=== PATIENT | male | born 1945 | race Caucasian/White ===

== ENCOUNTER 2020-02-07 17:36 | Inpatient (IN) | payer MEDICARE ==
[~2020-02-07] VITALS: Ht 180.3 cm; Wt 81.2 kg
[~2020-02-07 17:36] MED LIST: TERA2CAP3 PO
--- NOTE | 2020-02-07 17:57 | NUR ---
PT BEING TREATED FOR PROSTATE CANCER. PT STATES HE IS HAVING STOMACH AND BOWEL PROBLEMS. UNABLE TO EAT OR HAVE REGULAR BM. WAS HAVING SEVERE DIARRHEA, TOOK IMMODIUM, NOW ONLY ABLE TO HAVE SMALL BM IN AMS. PCP WANTS A CT AND SMALL BOWEL FOLLOW UP. DENIES PAIN, N/V AT THIS TIME. VSS
[2020-02-07] MEDS ORDERED: SODIUM CHLORIDE FLUSH 10ML SYR IVF ONE (19:00)
--- NOTE | 2020-02-07 19:00 | NUR ---
Late entry: Report received from MICHELLE Kaur. This RN to assume care. Patient to go to CT.
[2020-02-07 19:22] LABS: ALANINE AMINOTRANSFERASE 45 U/L (12-78); ALBUMIN 2.8 g/dL (3.4-5.0); ANION GAP 5 mmol/L (5-15); CALCIUM 8.4 mg/dL (8.5-10.1); CHLORIDE 107 mmol/L (98-107); CREATININE 0.82 mg/dL (0.7-1.3)
[2020-02-07 19:24] LABS: MD YES
[2020-02-07 19:25] LABS: ALKALINE PHOSPHATASE 221 U/L (45-117); BILIRUBIN,TOTAL 0.8 mg/dL (0.2-1.0); TOTAL PROTEIN 6.2 g/dL (6.4-8.2)
[2020-02-07 19:46] LABS: MEAN CORPUSCULAR HEMOGLOBIN 35.3 pg (27.5-34.5); PLATELET COUNT 239 x10^3/uL (130-400); RED BLOOD COUNT 3.36 x10^6/uL (4.38-5.82); RED CELL DISTRIBUTION WIDTH 15.7 % (9.4-14.8)
[2020-02-07 19:48] LABS: BASOS#(MANUAL) 0.05 x10^3/uL (0-0.1); BASOS% (MANUAL) 1 % (0-1); EOS#(MANUAL) 0.05 x10^3/uL (0.0-0.4); EOS% (MANUAL) 1 % (1-7); LYMPH#(MANUAL) 0.51 x10^3/uL (1-3.4); LYMPHS% (MANUAL) 11 % (22-44); MONOS#(MANUAL) 0.32 x10^3/uL (0.3-2.7); MONOS% (MANUAL) 7 % (2-9); SEG#(MANUAL) 3.68 x10^3/uL (1.8-6.8); SEGS% (MANUAL) 80 % (42-75)
[2020-02-07 19:49] LABS: <PLATELET ESTIMATE> ADEQUATE; <PLT MORPHOLOGY> NORMAL PLT MORPH; <RBC MORPHOLOGY> NORMAL
--- NOTE | 2020-02-07 20:00 | NUR ---
Late entry: Urine collected. Advised patient a stool sample was ordered. Patient states he would not be able to provide one while here.
[2020-02-07 20:17] LABS: MICROSCOPIC INDICATED
[2020-02-07] MEDS ORDERED: OMNIPAQUE 350 MG/ML, 100ML BOTTLE ONE (23:15)
--- NOTE | 2020-02-07 23:54 | NUR ---
Report given to MICHELLE Kaur. Patient to be transferred to room 431.
[2020-02-08] MEDS ORDERED: LIDODERM 5% PATCH TD PRN
[2020-02-08] MEDS ORDERED: LABETALOL 5MG/ML, 20ML IVPush PRN
[2020-02-08] MEDS ORDERED: POLYETHYLENE GLYCOL 17 GM PACKET PO PRN
[2020-02-08] MEDS ORDERED: PROMETHAZINE 25 MG/ML, 1ML IM PRN
[2020-02-08] MEDS ORDERED: ONDANSETRON 2MG/ML, 2ML IVPush PRN
[2020-02-08] MEDS ORDERED: ENALAPRILAT 1.25 MG/ML, 2ML IVPush PRN
[2020-02-08] MEDS ORDERED: ACETAMINOPHEN 325 MG TABLET PO PRN
[2020-02-08 01:00] VITALS: BP 101/67
[2020-02-08 01:10] VITALS: BP 101/67
[2020-02-08] MEDS: CEFTRIAXONE PMX 1GM/50ML 50 ML IV SCH (01:41)
[2020-02-08] MEDS ORDERED: MORPHINE SULFATE 4 MG/ML, 1ML ONE ×3 (01:56→19:37)
[2020-02-08] MEDS: morphine SULFATE 10 MG/ML, 1ML IVPush PRN ×4 (02:01→19:44)
[2020-02-08] MEDS ORDERED: finasteride PO (02:31)
[2020-02-08] MEDS ORDERED: TAMS-11 PO (02:31)
[2020-02-08 05:43] LABS: BASOPHILS # (AUTO) 0.01 x10^3/uL (0-0.1); BASOPHILS % (AUTO) 0 % (0-1); EOSINOPHILS # (AUTO) 0.02 x10^3/uL (0-0.4); EOSINOPHILS % (AUTO) 1 % (1-7); LYMPHOCYTES # (AUTO) 0.52 x10^3/uL (1-3.4); LYMPHOCYTES % (AUTO) 12 % (22-44); MD NO; MEAN CORPUSCULAR HEMOGLOBIN 35.1 pg (27.5-34.5); MEAN CORPUSCULAR HGB CONC 33.5 g/dL (33.2-36.2); MEAN PLATELET VOLUME 7.9 fL (7.4-10.4); MONOCYTES # (AUTO) 0.35 x10^3/uL (0.2-0.8); MONOCYTES % (AUTO) 8 % (2-9); NEUTROPHILS # (AUTO) 3.29 x10^3/uL (1.8-6.8); NEUTROPHILS % (AUTO) 79 % (42-75); PLATELET COUNT 208 x10^3/uL (130-400); RED BLOOD COUNT 3.22 x10^6/uL (4.38-5.82); RED CELL DISTRIBUTION WIDTH 15.3 % (9.4-14.8)
[2020-02-08 06:02] LABS: CHLORIDE 105 mmol/L (98-107)
[2020-02-08 06:13] LABS: ANION GAP 8 mmol/L (5-15); CALCIUM 8.1 mg/dL (8.5-10.1); CREATININE 0.72 mg/dL (0.7-1.3)
[2020-02-08 08:42] VITALS: BP 91/58
[2020-02-08] MEDS: LACTATED RINGERS 1,000 ML IV SCH ×2 (09:17)
[2020-02-08] MEDS: PANTOPRAZOLE 40 MG IV IVPush SCH ×2 (09:17→09:21)
[2020-02-08 11:53] VITALS: BP 102/72
[2020-02-08] MEDS: POTASSIUM CHLORIDE 10 MEQ in D5%-LACTATED RINGERS 1,000 ML IV SCH (15:54)
[2020-02-08 19:40] VITALS: BP 113/79
[2020-02-09] MEDS: POTASSIUM CHLORIDE 10 MEQ in D5%-LACTATED RINGERS 1,000 ML IV SCH ×2 (01:32→17:46)
[2020-02-09] MEDS: CEFTRIAXONE PMX 1GM/50ML 50 ML IV SCH (01:32)
[2020-02-09 01:36] VITALS: BP 100/68
[2020-02-09 05:00] LABS: BASOPHILS # (AUTO) 0.02 x10^3/uL (0-0.1); BASOPHILS % (AUTO) 1 % (0-1); EOSINOPHILS # (AUTO) 0.03 x10^3/uL (0-0.4); EOSINOPHILS % (AUTO) 1 % (1-7); LYMPHOCYTES # (AUTO) 0.38 x10^3/uL (1-3.4); LYMPHOCYTES % (AUTO) 11 % (22-44); MD NO; MEAN CORPUSCULAR HEMOGLOBIN 35.2 pg (27.5-34.5); MEAN CORPUSCULAR HGB CONC 33.5 g/dL (33.2-36.2); MEAN PLATELET VOLUME 7.9 fL (7.4-10.4); MONOCYTES # (AUTO) 0.29 x10^3/uL (0.2-0.8); MONOCYTES % (AUTO) 8 % (2-9); NEUTROPHILS # (AUTO) 2.84 x10^3/uL (1.8-6.8); NEUTROPHILS % (AUTO) 80 % (42-75); PLATELET COUNT 189 x10^3/uL (130-400); RED BLOOD COUNT 3.09 x10^6/uL (4.38-5.82); RED CELL DISTRIBUTION WIDTH 15.8 % (9.4-14.8)
[2020-02-09 05:07] LABS: ALANINE AMINOTRANSFERASE 31 U/L (12-78); ALBUMIN 2.4 g/dL (3.4-5.0); ANION GAP 7 mmol/L (5-15); CALCIUM 7.6 mg/dL (8.5-10.1); CHLORIDE 108 mmol/L (98-107); CREATININE 0.74 mg/dL (0.7-1.3)
[2020-02-09 05:10] LABS: ALKALINE PHOSPHATASE 172 U/L (45-117); BILIRUBIN,TOTAL 0.6 mg/dL (0.2-1.0); TOTAL PROTEIN 5.6 g/dL (6.4-8.2)
[2020-02-09] MEDS ORDERED: PROPOFOL 50 ML ONE (06:52)
[2020-02-09] MEDS ORDERED: PROPOFOL 10 MG/ML, 20ML ONE (06:58)
[2020-02-09 08:16] VITALS: BP 119/76
[2020-02-09] MEDS: TAMSULOSIN 0.4 MG CAP.ER.24H PO SCH (08:40)
[2020-02-09] MEDS: OMEPRAZOLE 20 MG CAPSULE.DR PO SCH (08:40)
[2020-02-09] MEDS: morphine SULFATE 10 MG/ML, 1ML IVPush PRN ×3 (08:42→20:37)
[2020-02-09 11:53] VITALS: BP 118/79
[2020-02-09 18:36] VITALS: BP 101/68
[2020-02-10] MEDS: CEFTRIAXONE PMX 1GM/50ML 50 ML IV SCH (01:23)
[2020-02-10 01:34] VITALS: BP 93/61
[2020-02-10] MEDS: POTASSIUM CHLORIDE 10 MEQ in D5%-LACTATED RINGERS 1,000 ML IV SCH ×3 (02:48→22:31)
[2020-02-10 05:19] LABS: BASOPHILS # (AUTO) 0.01 x10^3/uL (0-0.1); BASOPHILS % (AUTO) 0 % (0-1); EOSINOPHILS # (AUTO) 0.02 x10^3/uL (0-0.4); EOSINOPHILS % (AUTO) 1 % (1-7); LYMPHOCYTES # (AUTO) 0.35 x10^3/uL (1-3.4); LYMPHOCYTES % (AUTO) 8 % (22-44); MD NO; MEAN CORPUSCULAR HGB CONC 33.3 g/dL (33.2-36.2); MEAN PLATELET VOLUME 8.2 fL (7.4-10.4); MONOCYTES # (AUTO) 0.32 x10^3/uL (0.2-0.8); MONOCYTES % (AUTO) 8 % (2-9); NEUTROPHILS # (AUTO) 3.43 x10^3/uL (1.8-6.8); NEUTROPHILS % (AUTO) 83 % (42-75); PLATELET COUNT 184 x10^3/uL (130-400); RED BLOOD COUNT 3.01 x10^6/uL (4.38-5.82); RED CELL DISTRIBUTION WIDTH 15.5 % (9.4-14.8)
[2020-02-10 05:39] LABS: ANION GAP 6 mmol/L (5-15); CALCIUM 7.9 mg/dL (8.5-10.1); CHLORIDE 109 mmol/L (98-107); CREATININE 0.81 mg/dL (0.7-1.3)
[2020-02-10] MEDS: OMEPRAZOLE 20 MG CAPSULE.DR PO SCH (06:19)
[2020-02-10] MEDS: BISACODYL 10 MG SUPP PR PRN (06:26)
[2020-02-10] MEDS: morphine SULFATE 10 MG/ML, 1ML IVPush PRN ×2 (07:09→21:12)
[2020-02-10 07:56] VITALS: BP 92/61
[2020-02-10] MEDS: TAMSULOSIN 0.4 MG CAP.ER.24H PO SCH (08:23)
[2020-02-10] MEDS: FINASTERIDE 5 MG TABLET PO SCH (08:24)
[2020-02-10 12:45] VITALS: BP 107/65
[2020-02-10] MEDS ORDERED: MORPHINE 2 MG/ML PO PRN (13:30)
[2020-02-10 14:34] LABS: INTERNATIONAL NORMALIZED RATIO 1.04 (0.93-1.1); PROTHROMBIN TIME 10.7 Seconds (9.6-11.5)
[2020-02-10 18:55] VITALS: BP 115/78
[2020-02-10] MEDS ORDERED: MORPHINE SULFATE 4 MG/ML, 1ML ONE (21:08)
[2020-02-11] MEDS ORDERED: MORPHINE SULFATE 4 MG/ML, 1ML ONE (00:18)
[2020-02-11] MEDS: morphine SULFATE 10 MG/ML, 1ML IVPush PRN ×4 (00:20→19:51)
[2020-02-11] MEDS: CEFTRIAXONE PMX 1GM/50ML 50 ML IV SCH (00:58)
[2020-02-11 01:00] VITALS: BP 103/70
[2020-02-11] MEDS: OMEPRAZOLE 20 MG CAPSULE.DR PO SCH (05:57)
[2020-02-11 07:00] VITALS: BP 112/75
[2020-02-11] MEDS: FINASTERIDE 5 MG TABLET PO SCH (07:40)
[2020-02-11] MEDS: TAMSULOSIN 0.4 MG CAP.ER.24H PO SCH (07:41)
[2020-02-11] MEDS: POTASSIUM CHLORIDE 10 MEQ in D5%-LACTATED RINGERS 1,000 ML IV SCH (08:39)
[2020-02-11 09:58] LABS: ABSOLUTE RETICS # 0.074 x10^6/uL (0.5-1.5); RED BLOOD COUNT 3.11 x10^6/uL (4.38-5.82); RETICULOCYTE COUNT % 2.37 % (0.5-1.5)
[2020-02-11 10:54] LABS: PSA SCREEN 0.03 ng/mL (0.00-4.00)
[2020-02-11] MEDS ORDERED: LIDOCAINE 1%, 10ML ONE (12:29)
[2020-02-11] MEDS ORDERED: MIDAZOLAM 1 MG/ML, 5ML ONE (12:42)
[2020-02-11] MEDS ORDERED: FENTANYL PF 100 MCG/2ML ONE ×2 (12:42)
[2020-02-11] MEDS ORDERED: FLUMAZENIL 0.1 MG/1 ML, 5ML ONE (12:42)
[2020-02-11] MEDS ORDERED: NALOXONE 1 MG/ML, 2ML ONE (12:43)
[2020-02-11 13:19] VITALS: BP 113/77
[2020-02-11] MEDS: AMPICILLIN 1 GM in SODIUM CHLORIDE 0.9% 100 ML IV SCH ×2 (13:49→20:03)
[2020-02-11 14:26] VITALS: BP 111/71
[2020-02-11 18:23] VITALS: BP 112/71
[2020-02-12 00:43] VITALS: BP 105/64
[2020-02-12] MEDS: AMPICILLIN 1 GM in SODIUM CHLORIDE 0.9% 100 ML IV SCH ×4 (02:25→20:57)
[2020-02-12] MEDS: POTASSIUM CHLORIDE 10 MEQ in D5%-LACTATED RINGERS 1,000 ML IV SCH ×3 (03:24→23:53)
[2020-02-12] MEDS: morphine SULFATE 10 MG/ML, 1ML IVPush PRN ×2 (03:29→06:44)
[2020-02-12 05:37] LABS: BASOPHILS # (AUTO) 0.02 x10^3/uL (0-0.1); BASOPHILS % (AUTO) 0 % (0-1); EOSINOPHILS # (AUTO) 0.02 x10^3/uL (0-0.4); EOSINOPHILS % (AUTO) 1 % (1-7); LYMPHOCYTES % (AUTO) 10 % (22-44); MD NO; MEAN CORPUSCULAR HGB CONC 33.9 g/dL (33.2-36.2); MEAN PLATELET VOLUME 8.5 fL (7.4-10.4); MONOCYTES # (AUTO) 0.34 x10^3/uL (0.2-0.8); MONOCYTES % (AUTO) 8 % (2-9); NEUTROPHILS # (AUTO) 3.34 x10^3/uL (1.8-6.8); NEUTROPHILS % (AUTO) 81 % (42-75); PLATELET COUNT 175 x10^3/uL (130-400); RED BLOOD COUNT 3.12 x10^6/uL (4.38-5.82); RED CELL DISTRIBUTION WIDTH 15.6 % (9.4-14.8)
[2020-02-12 05:55] LABS: ANION GAP 6 mmol/L (5-15); CALCIUM 7.8 mg/dL (8.5-10.1); CHLORIDE 105 mmol/L (98-107)
[2020-02-12 06:02] LABS: % IRON SATURATION 36 % (20-55); CREATININE 0.76 mg/dL (0.7-1.3); IRON LEVEL 60 mcg/dL (65-175); TOTAL IRON BINDING CAPACITY 167 mcg/dL (250-450)
[2020-02-12] MEDS: OMEPRAZOLE 20 MG CAPSULE.DR PO SCH (06:27)
[2020-02-12] MEDS: BISACODYL 10 MG SUPP PR PRN (06:44)
[2020-02-12 06:52] VITALS: BP 121/70
[2020-02-12] MEDS: FINASTERIDE 5 MG TABLET PO SCH (08:45)
[2020-02-12] MEDS: TAMSULOSIN 0.4 MG CAP.ER.24H PO SCH (08:45)
[2020-02-12] MEDS: morphine SULFATE ORAL.CONC 20 MG/ML PO PRN ×2 (13:03→19:03)
[2020-02-12 13:15] VITALS: BP 95/58
[2020-02-12 19:36] VITALS: BP 105/69
[2020-02-13 00:50] VITALS: BP 99/65
[2020-02-13] MEDS: AMPICILLIN 1 GM in SODIUM CHLORIDE 0.9% 100 ML IV SCH ×4 (03:32→20:34)
[2020-02-13] MEDS: morphine SULFATE 10 MG/ML, 1ML IVPush PRN ×2 (03:37→10:52)
[2020-02-13] MEDS: POTASSIUM CHLORIDE 10 MEQ in D5%-LACTATED RINGERS 1,000 ML IV SCH ×2 (04:15→21:34)
[2020-02-13 06:31] VITALS: BP 119/73
[2020-02-13] MEDS: FINASTERIDE 5 MG TABLET PO SCH (07:44)
[2020-02-13] MEDS: TAMSULOSIN 0.4 MG CAP.ER.24H PO SCH (07:44)
[2020-02-13] MEDS ORDERED: CHLORHEXIDINE 15 ML UDC ONE (07:53)
[2020-02-13] MEDS ORDERED: FENTANYL PF 250 MCG/5ML ONE (09:04)
[2020-02-13] MEDS ORDERED: DEXAMETHASONE 4 MG/ML, 1ML ONE (09:47)
[2020-02-13] MEDS ORDERED: SUCCINYLCHOLINE 20 MG/ML, 10ML ONE (09:47)
[2020-02-13] MEDS ORDERED: ONDANSETRON 2MG/ML, 2ML ONE (09:47)
[2020-02-13] MEDS ORDERED: PROPOFOL 10 MG/ML, 20ML ONE (09:47)
[2020-02-13] MEDS ORDERED: FENTANYL PF 100 MCG/2ML IV PRN (10:00)
[2020-02-13] MEDS ORDERED: PROMETHAZINE 12.5 MG SUPP PR PRN (10:00)
[2020-02-13] MEDS ORDERED: EPHEDRINE 50 MG/ML, 1ML IVPush PRN (10:00)
[2020-02-13] MEDS ORDERED: LABETALOL 5MG/ML, 20ML IV PRN (10:00)
[2020-02-13] MEDS ORDERED: HYDROmorphone 1 MG/ML, 1ML INJ IVPush PRN (10:00)
[2020-02-13] MEDS ORDERED: hydrALAzine 20 MG/ML, 1ML IV PRN (10:00)
[2020-02-13] MEDS ORDERED: ACETAMINOPHEN 325 MG TABLET PO PRN (10:00)
[2020-02-13] MEDS ORDERED: OXYcodone 5 MG/5 ML ORAL.SOL UDC PO PRN (10:00)
[2020-02-13] MEDS ORDERED: PANTOPRAZOLE 40 MG IV IVPush SCH (10:30)
[2020-02-13] MEDS: OMEPRAZOLE 20 MG CAPSULE.DR PO SCH (10:52)
[2020-02-13] MEDS: PANTOPRAZOLE 40 MG IV IVPush SCH ×2 (10:52→22:32)
[2020-02-13] MEDS ORDERED: ESMOLOL 100 MG/10 ML ONE (11:31)
[2020-02-13] MEDS ORDERED: PHENYLEPHRINE 10 MG/ML ONE (11:31)
[2020-02-13] MEDS: ALUMINUM/MAG/SIMETHICONE 30 ML UDC PO PRN ×3 (12:27→22:36)
[2020-02-13 12:59] VITALS: BP 122/81
[2020-02-13] MEDS ORDERED: LIDOCAINE 2% VISCOUS 15 ML UDC MM PRN (13:30)
[2020-02-13] MEDS: morphine SULFATE ORAL.CONC 20 MG/ML PO PRN ×3 (15:05→21:34)
[2020-02-13 19:15] VITALS: BP 112/76
[2020-02-14 00:43] VITALS: BP 110/72
[2020-02-14] MEDS: morphine SULFATE 10 MG/ML, 1ML IVPush PRN ×2 (02:55→14:14)
[2020-02-14] MEDS: AMPICILLIN 1 GM in SODIUM CHLORIDE 0.9% 100 ML IV SCH ×4 (02:57→21:06)
[2020-02-14 04:04] VITALS: BP 98/64
[2020-02-14] MEDS: OMEPRAZOLE 20 MG CAPSULE.DR PO SCH (05:44)
[2020-02-14] MEDS: ALUMINUM/MAG/SIMETHICONE 30 ML UDC PO PRN ×3 (06:04→19:45)
[2020-02-14 06:05] LABS: MEAN CORPUSCULAR HGB CONC 32.5 g/dL (33.2-36.2); MEAN PLATELET VOLUME 8.8 fL (7.4-10.4); PLATELET COUNT 199 x10^3/uL (130-400); RED BLOOD COUNT 3.12 x10^6/uL (4.38-5.82); RED CELL DISTRIBUTION WIDTH 16.3 % (9.4-14.8)
[2020-02-14 06:37] LABS: BASOPHILS # (AUTO) 0.01 x10^3/uL (0-0.1); BASOPHILS % (AUTO) 0 % (0-1); EOSINOPHILS # (AUTO) 0.01 x10^3/uL (0-0.4); EOSINOPHILS % (AUTO) 0 % (1-7); LYMPHOCYTES # (AUTO) 0.42 x10^3/uL (1-3.4); LYMPHOCYTES % (AUTO) 7 % (22-44); MD SCAN; MONOCYTES # (AUTO) 0.47 x10^3/uL (0.2-0.8); MONOCYTES % (AUTO) 8 % (2-9); NEUTROPHILS # (AUTO) 4.76 x10^3/uL (1.8-6.8); NEUTROPHILS % (AUTO) 84 % (42-75)
[2020-02-14 06:45] VITALS: BP 109/70
[2020-02-14] MEDS: TAMSULOSIN 0.4 MG CAP.ER.24H PO SCH (09:44)
[2020-02-14] MEDS: FINASTERIDE 5 MG TABLET PO SCH (09:44)
[2020-02-14] MEDS: MAALOX/DIPHEN/LIDO 90 ML PO PRN ×2 (09:44→16:22)
[2020-02-14] MEDS: PANTOPRAZOLE 40 MG IV IVPush SCH (09:49)
[2020-02-14] MEDS: POTASSIUM CHLORIDE 10 MEQ in D5%-LACTATED RINGERS 1,000 ML IV SCH ×2 (10:41→22:16)
[2020-02-14 11:55] VITALS: BP 101/66
[2020-02-14] MEDS: morphine SULFATE ORAL.CONC 20 MG/ML PO PRN ×2 (15:38→19:48)
[2020-02-14 18:51] VITALS: BP 100/65
[2020-02-14] MEDS: PANTOPRAZOLE 40MG TABLET PO SCH (21:05)
[2020-02-15] MEDS: ALUMINUM/MAG/SIMETHICONE 30 ML UDC PO PRN ×2 (00:18→04:03)
[2020-02-15] MEDS: morphine SULFATE ORAL.CONC 20 MG/ML PO PRN ×2 (00:20→04:04)
[2020-02-15 00:27] VITALS: BP 104/72
[2020-02-15] MEDS: AMPICILLIN 1 GM in SODIUM CHLORIDE 0.9% 100 ML IV SCH ×3 (04:03→15:24)
[2020-02-15 04:55] LABS: ANION GAP 4 mmol/L (5-15); CALCIUM 7.8 mg/dL (8.5-10.1); CHLORIDE 105 mmol/L (98-107); CREATININE 0.76 mg/dL (0.7-1.3)
[2020-02-15] MEDS ORDERED: POTASSIUM PHOSPHATE 44 MEQ in SODIUM CHLORIDE 0.9% 500 ML IV ONE (06:30)
[2020-02-15 06:36] VITALS: BP 107/73
[2020-02-15] MEDS: MAALOX/DIPHEN/LIDO 90 ML PO PRN ×2 (07:20→11:34)
[2020-02-15] MEDS: TAMSULOSIN 0.4 MG CAP.ER.24H PO SCH (08:21)
[2020-02-15] MEDS: FINASTERIDE 5 MG TABLET PO SCH (08:21)
[2020-02-15] MEDS: PANTOPRAZOLE 40MG TABLET PO SCH (08:21)
[2020-02-15] MEDS ORDERED: MAG355OR14 PO (08:54)
[2020-02-15] MEDS ORDERED: PANT40TA6 PO (08:54)
[2020-02-15] MEDS ORDERED: MORP100S3 PO (08:54)
[2020-02-15] MEDS ORDERED: LIDOCAINE 2% VISCOUS 15 ML UDC MM PRN (12:30)
[2020-02-15] MEDS ORDERED: LIDO15SO2 MM (12:42)
[2020-02-15 12:46] VITALS: BP 105/70
[2020-02-15] MEDS: POTASSIUM CHLORIDE 10 MEQ in D5%-LACTATED RINGERS 1,000 ML IV SCH (16:00)
== END 2020-02-15 17:27 | disposition home or self-care (01) | DRG 374 ==
LOC: ED 21:17 → EDIP 23:24 → 4NW 02-08 00:51
PROVIDERS: ADMIT Family Medicine; ATTEND Internal Medicine
PROC: 0T9B70Z Drainage of Bladder with Drainage Device, Via Natural or Artificial Opening (ICD-10-PCS; 2020-02-07)
PROC: 0DB58ZX Excision of Esophagus, Via Natural or Artificial Opening Endoscopic, Diagnostic (ICD-10-PCS; 2020-02-09)
PROC: 0FB03ZX Excision of Liver, Percutaneous Approach, Diagnostic (ICD-10-PCS; principal; 2020-02-11)
PROC: 0D758DZ Dilation of Esophagus with Intraluminal Device, Via Natural or Artificial Opening Endoscopic (ICD-10-PCS; 2020-02-13)
DX: C15.5 Malignant neoplasm of lower third of esophagus (principal); E43 Unspecified severe protein-calorie malnutrition; C78.7 Secondary malignant neoplasm of liver and intrahepatic bile duct; T83.518A Infection and inflammatory reaction due to other urinary catheter, initial encounter; C79.51 Secondary malignant neoplasm of bone; K22.2 Esophageal obstruction; B95.2 Enterococcus as the cause of diseases classified elsewhere; B96.20 Unspecified Escherichia coli [E. coli] as the cause of diseases classified elsewhere; C61 Malignant neoplasm of prostate; D53.9 Nutritional anemia, unspecified; D63.8 Anemia in other chronic diseases classified elsewhere; D75.89 Other specified diseases of blood and blood-forming organs; E83.39 Other disorders of phosphorus metabolism; E86.0 Dehydration; F51.04 Psychophysiologic insomnia; G89.29 Other chronic pain; I48.91 Unspecified atrial fibrillation; J44.9 Chronic obstructive pulmonary disease, unspecified; K21.9 Gastro-esophageal reflux disease without esophagitis; K59.00 Constipation, unspecified; N30.90 Cystitis, unspecified without hematuria; N40.1 Benign prostatic hyperplasia with lower urinary tract symptoms; R62.7 Adult failure to thrive; Y84.6 Urinary catheterization as the cause of abnormal reaction of the patient, or of later complication, without mention of misadventure at the time of the procedure; Z20.828 Contact with and (suspected) exposure to other viral communicable diseases; Z66 Do not resuscitate; Z80.42 Family history of malignant neoplasm of prostate; Z82.5 Family history of asthma and other chronic lower respiratory diseases; Z83.3 Family history of diabetes mellitus; Z85.01 Personal history of malignant neoplasm of esophagus; Z85.46 Personal history of malignant neoplasm of prostate; Z87.440 Personal history of urinary (tract) infections; Z87.891 Personal history of nicotine dependence; Z92.3 Personal history of irradiation; R16.0 Hepatomegaly, not elsewhere classified
CPT/HCPCS: 36415; 47000; 71045; 74177; 76000; 76942; 80048; 80053; 81001; 82607; 82728; 82746; 83540; 83550; 83735; 84100; 84443; 85025; 85045; 85610; 87077; 87086; 87186; 87449; 87635; 88305; 88307; 88341; 88342; 93005; 99156; G0103; G0378; J0290; J0696; J1100; J2250; J2405; J2704; J3010; J3480; Q9967; C1874; C9113; J0330; J2270; J2310; J2370; J7040; J7120; J7121